=== PATIENT | female | born 1995 | race Caucasian/White ===

== ENCOUNTER 2024-10-08 07:04 | Inpatient (IN) | payer BC ==
[2024-10-08] MEDS ORDERED: Nalbuphine 10 MG/1 ML Vial IVPUSH PRN (07:09)
[2024-10-08] MEDS ORDERED: Lidocaine 1% 50 ML MDV INJECT PRN (07:09)
[2024-10-08] MEDS ORDERED: Acetaminophen 325 MG Tab PO PRN (07:09)
[2024-10-08] MEDS ORDERED: Ondansetron 4 MG/2 ML SDV IVPUSH PRN ×2 (07:09→19:31)
[2024-10-08] MEDS ORDERED: Sodium Chloride 0.9% 10 ML Syringe FLUSH PRN (07:09)
[2024-10-08] MEDS ORDERED: Oxytocin/0.9 % Sodium Chloride 30 UNIT/500 ML BAG IV SCH ×2 (07:15)
[2024-10-08 07:34] LABS: BASOPHILS ABSOLUTE AUTO 0.1 K/mm3 (0.0-0.2); BASOPHILS PERCENT AUTO 0.4 % (0.0-1.0); EOSINOPHILS ABSOLUTE AUTO 0.2 K/mm3 (0.0-0.4); EOSINOPHILS PERCENT AUTO 1.1 % (0.0-6.0); HEMATOCRIT 32.8 % (37.0-47.0); HEMOGLOBIN 10.7 gm/dl (12.0-16.0); IMMATURE GRAN ABSOLUTE AUTO 0.17 K/mm3 (0.00-0.05); LYMPHOCYTES PERCENT AUTO 33.5 % (24.0-44.0); MEAN CORPUSCULAR HEMOGLOBIN 25.6 pg (28.0-32.0); MEAN CORPUSCULAR HGB CONC 32.6 g/dl (32.0-36.0); MEAN CORPUSCULAR VOLUME 78.5 fl (83.0-99.0); MEAN PLATELET VOLUME 11.4 fl (9.4-12.3); MONOCYTES ABSOLUTE AUTO 1.1 K/mm3 (0.0-0.8); NEUTROPHILS ABSOLUTE AUTO 10.3 K/mm3 (1.8-7.7); PLATELET COUNT,PLT 311 K/mm3 (150-400); RED BLOOD CELL COUNT 4.18 M/mm3 (4.10-5.30); WHITE BLOOD CELL COUNT,WBC 17.75 K/mm3 (3.9-11.3)
[2024-10-08 07:55] LABS: SLIDE REVIEW ABNORMAL SMEAR
[2024-10-08] MEDS: Misoprostol 25 MCG (1/4 of 100 MCG) Tab VAG ONE (08:00)
[2024-10-08] MEDS: Lactated Ringers 1,000 ML IV SCH (11:56)
[2024-10-08] MEDS: Misoprostol 25 MCG (1/4 of 100 MCG) Tab VAG PRN (12:11)
[2024-10-08] MEDS: Sodium Chloride 0.9% 10 ML Syringe FLUSH SCH (16:20)
[2024-10-08] MEDS ORDERED: fentaNYL 100 MCG/2 ML SDV ONE (17:12)
[2024-10-08] MEDS ORDERED: Morphine PF 10 MG/10 ML SDV ONE (17:12)
[2024-10-08] MEDS ORDERED: Ondansetron 4 MG/2 ML SDV ONE (17:21)
[2024-10-08] MEDS ORDERED: Phenylephrine 1% 10 MG/ML SDV ONE (17:22)
[2024-10-08] MEDS: Metoclopramide 10 MG/2 ML SDV IVPUSH ONE (18:49)
[2024-10-08] MEDS: Citric Acid/Sodium Citrate Solution 30 ML Cup PO ONE (18:49)
[2024-10-08] MEDS ORDERED: ceFAZolin 2 GM Vial ONE (19:10)
[2024-10-08] MEDS ORDERED: Oxytocin 10 Units/1 ML SDV ONE (19:15)
[2024-10-08] MEDS ORDERED: diphenhydrAMINE 50 MG/ML SDV IVPUSH PRN (19:31)
[2024-10-08] MEDS ORDERED: fentaNYL 100 MCG/2 ML SDV IVPUSH PRN (19:31)
[2024-10-08] MEDS ORDERED: Meperidine 50 MG/ML Vial IVPUSH PRN (19:31)
[2024-10-08] MEDS ORDERED: Naloxone 0.4 MG/ML SDV IVPUSH PRN (20:40)
[2024-10-08] MEDS ORDERED: ePHEDrine 50 MG/ML SDV IVPUSH PRN (20:40)
[2024-10-08] MEDS: Dextrose 5%-Lactated Ringers 1,000 ML IV SCH (21:40)
[2024-10-08] MEDS: Ketorolac 30 MG/ML SDV IVPUSH SCH (21:40)
[2024-10-08] MEDS: diphenhydrAMINE 50 MG/ML SDV IVPUSH PRN (22:07)
[2024-10-09] MEDS: Docusate Sodium 100 MG Cap PO PRN (04:12)
[2024-10-09 05:42] LABS: MEAN CORPUSCULAR HEMOGLOBIN 25.6 pg (28.0-32.0); MEAN CORPUSCULAR HGB CONC 32.3 g/dl (32.0-36.0); MEAN CORPUSCULAR VOLUME 79.3 fl (83.0-99.0); MEAN PLATELET VOLUME 11.1 fl (9.4-12.3); PLATELET COUNT,PLT 263 K/mm3 (150-400); RED BLOOD CELL COUNT 3.28 M/mm3 (4.10-5.30); WHITE BLOOD CELL COUNT,WBC 18.72 K/mm3 (3.9-11.3)
[2024-10-09 06:49] LABS: HEMOGLOBIN 8.4 gm/dl (12.0-16.0)
[2024-10-09] MEDS: ceFAZolin 2 GM in Sodium Chloride 0.9% 50 ML IV ONE (07:22)
[2024-10-09] MEDS: Ibuprofen 600 MG Tab PO SCH (15:29)
[2024-10-09] MEDS: Acetaminophen 325 MG Tab PO PRN (20:22)
[2024-10-10] MEDS: oxyCODONE 5 MG Tab PO PRN (03:32)
[2024-10-10] MEDS: Ibuprofen 600 MG Tab PO SCH (05:13)
== END 2024-10-10 18:22 | disposition home or self-care (01) | DRG 540 ==
LOC: JD.OB 07:04 → OBSVTOIN 19:19 → JD.OB 19:19
PROVIDERS: ADMIT Obstetrics & Gynecology; ATTEND Obstetrics & Gynecology
PROC: 10D00Z1 Extraction of Products of Conception, Low, Open Approach (ICD-10-PCS; principal; 2024-10-08 19:00)
DX: O48.0 Post-term pregnancy (principal); O34.211 Maternal care for low transverse scar from previous cesarean delivery; O35.BXX0 Maternal care for other (suspected) fetal abnormality and damage, fetal cardiac anomalies, not applicable or unspecified; Z3A.40 40 weeks gestation of pregnancy; Z37.0 Single live birth; Z88.0 Allergy status to penicillin; Z88.8 Allergy status to other drugs, medicaments and biological substances; Z98.890 Other specified postprocedural states; Z90.49 Acquired absence of other specified parts of digestive tract; Z79.82 Long term (current) use of aspirin; Z79.899 Other long term (current) drug therapy
CPT/HCPCS: 36415; 59025; 59409; 85025; 85027; 86592; 86850; 86900; 86901; 94762; A9270-GY; J0690; J1200; J1885; J2274; J2371; J2405; J2590; J2765; J3010; J7120; J7121